=== PATIENT | male | born 1950 | race Hispanic/Latino ===

== ENCOUNTER 2020-08-29 09:42 | Outpatient (CLI) | payer MEDICARE | END 2020-08-29 09:43 | disposition home or self-care (01) | LOC: CSHMRI 09:42 | PROVIDERS: ATTEND Specialist | DX: H90.5 Unspecified sensorineural hearing loss (principal); G93.89 Other specified disorders of brain; I67.9 Cerebrovascular disease, unspecified | CPT/HCPCS: 70553 ==

== ENCOUNTER 2022-02-27 14:27 | Inpatient (IN) | payer OTHER ==
[~2022-02-27 14:27] MED LIST: Iopamidol 300 61% 100 ML VIAL FS ONE
[2022-02-27 15:05] LABS: #Eosinphils 0.1 10x3/uL (0.0-0.5); #Monocytes 1.2 10x3/uL (0.0-1.1); #Neutrophils 11.5 10x3/uL (1.5-8.4); %Basophils 0.2 % (0.0-2.0); %Eosinophils 0.9 % (0.0-6.0); %Lymphocytes 7.4 % (18.0-47.0); %Monocytes 8.9 % (0.0-10.0); %Neutrophils 82.2 % (40.0-75.0); Hemoglobin 13.1 g/dL (13.5-17.5); Mean Corpuscular HGB CONC 34.7 g/dL (32.0-36.0); Mean Corpuscular Hemoglobin 28.1 pg (27.0-33.0); Mean Corpuscular Volume 80.7 fl (81.2-95.1); Mean Platelet Volume 10.5 fl (7.4-10.4); Platelet Count 225 10x3/uL (150-450); RBC Distribution Width 13.6 % (11.5-14.5); Red Blood Cell (RBC) Count 4.67 10x6/uL (4.32-5.72); White Blood Cell (WBC) Count 13.9 10x3/uL (3.5-10.5)
[2022-02-27 15:19] LABS: ALT (SGPT) 84 U/L (8-55); AST (SGOT) 65 U/L (5-34); Albumin 4.1 g/dL (3.4-4.8); Alkaline Phosphatase 103 U/L (40-110); Anion Gap 15 mmol/L (10-20); BUN (Urea Nitrogen) 25 mg/dL (8.4-25.7); Bilirubin, Total 0.8 mg/dL (0.2-1.2); Calc. Creatinine Clearance 0 mL/min (70-130); Calcium 8.5 mg/dL (7.8-10.44); Carbon Dioxide 24 mmol/L (23-31); Chloride 101 mmol/L (98-107); Estimated GFR 69; Globulin 2.8 g/dL (2.4-3.5); Glucose 133 mg/dL (83-110); Lipase 12 U/L (8-78); Potassium 4.3 mmol/L (3.5-5.1); Protein, Total 6.9 g/dL (5.8-8.1); Sodium 136 mmol/L (136-145)
[2022-02-27] MEDS ORDERED: Ibuprofen 200 MG TAB ONE (16:21)
[2022-02-27 16:26] LABS: SARS-CoV-2 NAA Rapid Test Not Detected (NotDetected)
[2022-02-27] MEDS ORDERED: Acetaminophen 500 MG TAB ONE (17:33)
[2022-02-27 17:36] LABS: Bilirubin Neg (Negative); Blood, Urine 150 (Negative); Clarity Cloudy (Clear); Glucose, Urine (Dipstick) Normal (Negative); Ketone, Urine 5 mg/dL (Negative); Leukocyte 500 (Negative); Nitrite Negative (Negative); Protein, Urine (Dipstick) 100 mg/dl (Neg-Trace); Urobilinogen Normal mg/dL (Less than 2)
[2022-02-27 17:48] LABS: Squamous Epithelial None Seen HPF (0-3); WBC/HPF Greater Than 50 HPF (0-3)
[2022-02-27 17:49] LABS: Bacteria/HPF 4+ HPF (None Seen)
[2022-02-27 17:50] LABS: Mucous/LPF Rare LPF (<2+)
[2022-02-27] MEDS ORDERED: Vancomycin 1 GM VIAL ONE (19:27)
[2022-02-27] MEDS ORDERED: cefTRIAXone\\ROCEPHIN 1 GM VIAL ONE ×2 (19:28→19:38)
[2022-02-27 22:45] VITALS: BMI 28.7
[2022-02-27] MEDS ORDERED: Acetaminophen 325 MG TAB PO PRN (22:52)
[2022-02-27] MEDS ORDERED: HYDROcodone/Acetaminophen 5/325 mg Tablet PO PRN (22:52)
[2022-02-27] MEDS ORDERED: Ondansetron ODT 4 MG TAB PO PRN (22:52)
[2022-02-27] MEDS ORDERED: Ondansetron PF 4 MG/2 ML Vial IVP PRN (22:52)
[2022-02-28] MEDS: Sodium Chloride 0.9% 1,000 ML IV SCH ×4 (00:02→20:19)
[2022-02-28 01:23] LABS: Magnesium 2.2 mg/dL (1.6-2.6)
[2022-02-28 06:56] LABS: #Neutrophils 7.8 10x3/uL (1.5-8.4); %Basophils 0.1 % (0.0-2.0); %Lymphocytes 4.8 % (18.0-47.0); %Monocytes 10.5 % (0.0-10.0); %Neutrophils 84.1 % (40.0-75.0); Hemoglobin 11.5 g/dL (13.5-17.5); Mean Corpuscular Volume 80.2 fl (81.2-95.1); Mean Platelet Volume 10.7 fl (7.4-10.4); Platelet Count 191 10x3/uL (150-450); RBC Distribution Width 13.6 % (11.5-14.5); White Blood Cell (WBC) Count 9.3 10x3/uL (3.5-10.5)
[2022-02-28 07:05] LABS: Anion Gap 12 mmol/L (10-20); BUN (Urea Nitrogen) 19 mg/dL (8.4-25.7); Calc. Creatinine Clearance 99 mL/min (70-130); Calcium 7.9 mg/dL (7.8-10.44); Carbon Dioxide 21 mmol/L (23-31); Chloride 107 mmol/L (98-107); Estimated GFR 94; Glucose 122 mg/dL (83-110); Potassium 3.9 mmol/L (3.5-5.1); Sodium 136 mmol/L (136-145)
[2022-02-28] MEDS: Enoxaparin Sodium 40 MG/0.4 ML SYRINGE SC SCH (08:38)
[2022-02-28] MEDS: Losartan Potassium 50 MG TAB PO SCH (08:40)
[2022-02-28] MEDS: Amlodipine 5 MG TAB PO SCH (08:40)
[2022-02-28] MEDS ORDERED: Metoprolol Tartrate 5 MG/5 ML VIAL IVP SCH (09:42)
[2022-02-28] MEDS ORDERED: Metoprolol Tartrate 5 MG/5 ML VIAL IVP PRN (09:45)
[2022-02-28] MEDS ORDERED: Amiodarone 450 MG in Dextrose 5% in Water 250 ML IVPB SCH (15:15)
[2022-02-28] MEDS ORDERED: Amiodarone In Dextrose 150 MG in Premix Bag 1 BAG IVPB SCH (15:30)
[2022-02-28] MEDS: Amiodarone In Dextrose 200 ML IVPB SCH (18:31)
[2022-02-28] MEDS: cefTRIAXone\\ROCEPHIN 2 GM in Sodium Chloride 0.9% 100 ML IVPB SCH (20:23)
[2022-03-01] MEDS: Amiodarone In Dextrose 200 ML IVPB SCH (00:48)
[2022-03-01 05:22] LABS: Hemoglobin 10.6 g/dL (13.5-17.5); Mean Corpuscular HGB CONC 34.3 g/dL (32.0-36.0); Mean Corpuscular Hemoglobin 27.5 pg (27.0-33.0); Mean Corpuscular Volume 80.1 fl (81.2-95.1); Mean Platelet Volume 11.3 fl (7.4-10.4); Platelet Count 199 10x3/uL (150-450); RBC Distribution Width 13.8 % (11.5-14.5); Red Blood Cell (RBC) Count 3.86 10x6/uL (4.32-5.72); White Blood Cell (WBC) Count 8.1 10x3/uL (3.5-10.5)
[2022-03-01 05:23] LABS: Anion Gap 11 mmol/L (10-20); BUN (Urea Nitrogen) 18 mg/dL (8.4-25.7); Calc. Creatinine Clearance 99 mL/min (70-130); Calcium 7.9 mg/dL (7.8-10.44); Carbon Dioxide 24 mmol/L (23-31); Chloride 106 mmol/L (98-107); Estimated GFR 94; Glucose 127 mg/dL (83-110); Potassium 3.9 mmol/L (3.5-5.1); Sodium 137 mmol/L (136-145)
[2022-03-01 05:47] LABS: MDiff Complete? YES
[2022-03-01] MEDS: Sodium Chloride 0.9% 1,000 ML IV SCH ×2 (05:48→15:26)
[2022-03-01 05:50] LABS: Band 2 % (5-11); Eosinophils 3 % (0-10); Lymphocytes 14 % (21-51); Monocytes 18 % (0-10); Neutrophil 63 % (42-75)
[2022-03-01 06:00] LABS: Platelet Morphology Comment Appears Adequate; RBC Morphology Normal
[2022-03-01] MEDS: Amlodipine 5 MG TAB PO SCH (08:25)
[2022-03-01] MEDS: Losartan Potassium 50 MG TAB PO SCH (08:25)
[2022-03-01] MEDS: Enoxaparin Sodium 40 MG/0.4 ML SYRINGE SC SCH (08:26)
[2022-03-01] MEDS ORDERED: Amiodarone 200 MG TAB PO SCH (17:00)
[2022-03-01] MEDS ORDERED: Sodium Chloride 0.9% 100 ML ONE (20:35)
[2022-03-01] MEDS: cefTRIAXone\\ROCEPHIN 2 GM in Sodium Chloride 0.9% 100 ML IVPB SCH (20:43)
[2022-03-02] MEDS: Sodium Chloride 0.9% 1,000 ML IV SCH ×2 (03:01→08:27)
[2022-03-02 06:52] LABS: #Eosinphils 0.1 10x3/uL (0.0-0.5); #Monocytes 0.9 10x3/uL (0.0-1.1); #Neutrophils 5.5 10x3/uL (1.5-8.4); %Basophils 0.3 % (0.0-2.0); %Eosinophils 0.9 % (0.0-6.0); %Lymphocytes 13.7 % (18.0-47.0); %Monocytes 12.1 % (0.0-10.0); %Neutrophils 72.7 % (40.0-75.0); Hemoglobin 11.3 g/dL (13.5-17.5); Mean Corpuscular HGB CONC 35.3 g/dL (32.0-36.0); Mean Corpuscular Hemoglobin 27.8 pg (27.0-33.0); Mean Corpuscular Volume 78.8 fl (81.2-95.1); Mean Platelet Volume 10.8 fl (7.4-10.4); Platelet Count 221 10x3/uL (150-450); RBC Distribution Width 14.1 % (11.5-14.5); Red Blood Cell (RBC) Count 4.06 10x6/uL (4.32-5.72); White Blood Cell (WBC) Count 7.5 10x3/uL (3.5-10.5)
[2022-03-02 07:13] LABS: Anion Gap 13 mmol/L (10-20); BUN (Urea Nitrogen) 12 mg/dL (8.4-25.7); Calc. Creatinine Clearance 108 mL/min (70-130); Calcium 8.2 mg/dL (7.8-10.44); Carbon Dioxide 23 mmol/L (23-31); Chloride 108 mmol/L (98-107); Estimated GFR 96; Glucose 108 mg/dL (83-110); Potassium 3.7 mmol/L (3.5-5.1); Sodium 140 mmol/L (136-145)
[2022-03-02] MEDS: Losartan Potassium 50 MG TAB PO SCH (08:26)
[2022-03-02] MEDS: Amlodipine 5 MG TAB PO SCH (08:26)
[2022-03-02] MEDS: Enoxaparin Sodium 40 MG/0.4 ML SYRINGE SC SCH (08:27)
[2022-03-02 11:27] VITALS: BP 138/81; TEMP 98.8
== END 2022-03-02 11:32 | disposition home or self-care (01) | DRG 872 ==
LOC: CSHERS 14:27 → CSHTELE 21:36
PROVIDERS: ADMIT Family Medicine; ATTEND Internal Medicine
DX: A41.9 Sepsis, unspecified organism (principal); N12 Tubulo-interstitial nephritis, not specified as acute or chronic; Z20.822 Contact with and (suspected) exposure to COVID-19; I48.0 Paroxysmal atrial fibrillation; N28.89 Other specified disorders of kidney and ureter; I10 Essential (primary) hypertension; Z79.899 Other long term (current) drug therapy; Z90.89 Acquired absence of other organs
CPT/HCPCS: 36415; 74177; 80048; 80053; 81003; 81015; 83605; 83690; 83735; 84484; 85025; 87077; 87086; 87186; 87804; 93005; 94760; 96374; 96375; J0282; J0696; J1650; J3370; J3490; J7050; Q9967; U0002

== ENCOUNTER 2022-07-15 08:51 | Outpatient (CLI) | payer OTHER ==
[2022-07-15] MEDS ORDERED: Iopamidol 370 76% 100 ML VIAL ONE (09:48)
== END 2022-07-15 08:52 | disposition home or self-care (01) ==
LOC: CSHCT 08:51
PROVIDERS: ATTEND Psychiatry & Neurology Neurology
DX: R68.89 Other general symptoms and signs (principal)
CPT/HCPCS: 70496; 82565

== ENCOUNTER 2023-04-21 09:33 | Outpatient (CLI) | payer OTHER | END 2023-04-21 09:34 | disposition home or self-care (01) | LOC: CSHCT 09:33 | PROVIDERS: ATTEND Family Medicine | DX: Z98.2 Presence of cerebrospinal fluid drainage device (principal); H93.19 Tinnitus, unspecified ear | CPT/HCPCS: 70450 ==